=== PATIENT | male | born 1965 | race Hispanic/Latino ===

== ENCOUNTER 2017-04-20 13:36 | Outpatient (CLI) | payer BC ==
--- NOTE | 2017-04-20 16:25 | RAD ---
CERVICAL SPINE THREE VIEWS: 04/20/17 HISTORY: 51-year-old male with cervical radiculopathy. Followup status post neck surgery. FINDINGS: Anterior cervical fusion changes at C6-C7 with anterior metal plate and screws and intradiscal prost hesis. No evidence for malalignment. No significant prevertebral soft tissue swelling. Mild changes of spondylosis involving the upper cervical spine. IMPRESSION: Post anterior cervical fusion changes at C6-7 with intradiscal prosthesis. No malalignment. No preve rtebral soft tissue swelling. Minimal generalized spondylosis. POS: [facility]
== END 2017-04-20 13:37 | disposition home or self-care (01) ==
LOC: TBSIIMAG 13:36
PROVIDERS: ATTEND Neurological Surgery
DX: M47.22 Other spondylosis with radiculopathy, cervical region (principal); Z98.1 Arthrodesis status
CPT/HCPCS: 72040

== ENCOUNTER 2018-11-01 15:56 | Outpatient (CLI) | payer BC ==
--- NOTE | 2018-11-01 16:28 | CT ---
CT abdomen and pelvis noncontrast HISTORY: Microscopic hematuria. FINDINGS: Each renal collecting system, ureter, and urinary bladder are decompressed without stone ap parent. Lack of contrast limits evaluation for other abnormalities. Along the medial cortex of the superior p ole right kidney, a lobular oval predominantly low density mass measures up to 4.3 cm in diameter on the coronal images. There is some poor definition to the central margin of the mass. Scattered diverticula of the colon without adjacent inflammation. Degenerative changes lumbar spine. IMPRESSION: No CT evidence of urinary tract obstruction or calcification. Large low density mass at the superior pole right kidney. On the noncontrast study, it demonstrates s ome characteristics suggestive of a cyst, but remains of concern in a patient with hematuria. Please consider dedicated CT kidneys, with and without IV contrast, for better characterization and t o evaluate for the possibility of a solid renal mass.
== END 2018-11-01 15:57 | disposition home or self-care (01) ==
LOC: BICCT 15:56
PROVIDERS: ATTEND Physician Assistant
DX: R31.29 Other microscopic hematuria (principal); N28.89 Other specified disorders of kidney and ureter
CPT/HCPCS: 74176

== ENCOUNTER 2025-04-18 08:22 | Outpatient (CLI) | payer BC ==
[2025-04-18] MEDS ORDERED: Iopamidol 370 76% 100 ML VIAL ONE (12:00)
== END 2025-04-18 08:23 | disposition home or self-care (01) ==
LOC: CT 08:22
PROVIDERS: ATTEND Family Medicine
DX: N28.1 Cyst of kidney, acquired (principal); R93.2 Abnormal findings on diagnostic imaging of liver and biliary tract
CPT/HCPCS: 74178; Q9967